=== PATIENT | male | born 1980 | race Caucasian/White ===

== ENCOUNTER 2021-08-06 12:58 | Emergency (ER) | payer MEDICAID ==
[~2021-08-06] VITALS: Ht 172.7 cm; Wt 122.3 kg
[~2021-08-06 12:58] MED LIST: INSLIS SUBCUT; INSU100I28 SQ; PROT40 MT
[2021-08-06 13:13] VITALS: BP 172/103
[2021-08-06] MEDS ORDERED: SULF1TAB44 MT (14:01)
[2021-08-06] MEDS ORDERED: CEPH500C2 MT (14:01)
== END 2021-08-06 16:14 | disposition home or self-care (01) ==
LOC: ER 12:58
DX: L02.31 Cutaneous abscess of buttock (principal); E11.9 Type 2 diabetes mellitus without complications; I10 Essential (primary) hypertension; Z79.4 Long term (current) use of insulin
CPT/HCPCS: 99282; 99283

== ENCOUNTER 2021-10-07 05:51 | Emergency (ER) | payer MEDICAID, OTHER ==
[~2021-10-07] VITALS: Ht 175.3 cm; Wt 118.0 kg
[~2021-10-07 05:51] MED LIST changes: +CEPH500C2 MT; +SULF1TAB44 MT
[2021-10-07] MEDS ORDERED: ONDANSETRON HCL 4MG/2ML INJ IV STA (06:21)
[2021-10-07] MEDS ORDERED: MORPHINE SULFATE 4 MG/ML CPJ (NOT FOR IM USE) IV STA (06:21)
[2021-10-07] MEDS ORDERED: SODIUM CHLORIDE 0.9% 1,000 ML IV ONE (06:30)
[2021-10-07 07:08] LABS: BASOPHILS % 0.2 % (0.0-2.0); EOSINOPHILS % 0.3 % (0.0-5.0); HEMOGLOBIN. 16.8 g/dL (14.0-18.0); LYMPHOCYTES % 9.3 % (20.0-50.0); MEAN CORPUSCULAR HEMOGLOBIN 30.6 pg (28.0-32.0); MEAN CORPUSCULAR VOLUME 90.8 fL (80.0-94.0); MEAN PLATELET VOLUME 8.6 fl (7.4-10.4); MONOCYTES % 6.3 % (2.0-8.0); NEUTROPHILS % 83.9 % (40.0-76.0); PLATELET 209 x1000/uL (130-400); RED CELL DISTRIBUTION WIDTH 12.8 % (11.6-14.6)
[2021-10-07 07:09] LABS: CHLORIDE 102 mEq/L (98-107)
[2021-10-07] MEDS ORDERED: VANCOMYCIN 1 G PREMIX 200 ML IV SCH (09:30)
[2021-10-07] MEDS ORDERED: CEFTRIAXONE 1 G PREMIX 50 ML IV ONE (09:30)
[2021-10-07 12:31] VITALS: BP 142/78
== END 2021-10-07 12:35 | disposition short-term general hospital (02) ==
LOC: ER 06:10 → CANBEDREQ 16:43
DX: L03.315 Cellulitis of perineum (principal); I10 Essential (primary) hypertension; E11.9 Type 2 diabetes mellitus without complications
CPT/HCPCS: 36415; 74177; 80053; 82962; 83605; 83880; 84484; 85025; 87040; 93005; 96361; 96365; 96366; 96368; 96375; 99285; J0696; J2270; J2405; J3370; J7030; Z7610; 96367

== ENCOUNTER 2023-03-19 05:37 | Emergency (ER) | payer MEDICAID, OTHER ==
[~2023-03-19] VITALS: Ht 30.5 cm; Wt 0.5 kg
[2023-03-19] MEDS ORDERED: KETOROLAC 30MG/ML VIAL IV STA (07:12)
[2023-03-19] MEDS ORDERED: SODIUM CHLORIDE 0.9% 1,000 ML IV ONE (07:15)
[2023-03-19 07:41] LABS: HEMATOCRIT. 46.1 % (42.0-52.0); HEMOGLOBIN. 16.1 g/dL (14.0-18.0); MEAN CORPUSCULAR HEMOGLOBIN 31.4 pg (28.0-32.0); MEAN CORPUSCULAR VOLUME 89.9 fL (80.0-94.0); MEAN PLATELET VOLUME 8.3 fl (7.4-10.4); PLATELET 250 x1000/uL (130-400); RED BLOOD CELL COUNT 5.12 mill/uL (4.7-6.1); RED CELL DISTRIBUTION WIDTH 12.8 % (11.6-14.6)
[2023-03-19 07:50] LABS: CHLORIDE 106 mEq/L (98-107)
[2023-03-19] MEDS ORDERED: LIDOCAINE HCL 1% 20ML VIAL (Pyxis) INJ INFIL ONE (08:45)
[2023-03-19] MEDS ORDERED: LIDOCAINE HCL/EPINEPHRINE 1%-EPI 1:100,000 50 ML VIAL INFIL ONE (08:45)
[2023-03-19] MEDS ORDERED: KETOROLAC 60MG/2ML VIAL IM ONE (09:00)
[2023-03-19] MEDS ORDERED: LIDOCAINE HCL/EPINEPHRINE 1%-EPI 1:100,000 30 ML VIAL INFIL NR (09:15)
[2023-03-19] MEDS ORDERED: DOXY100C5 MT (11:01)
[2023-03-19 11:23] VITALS: BP 158/98
[2023-03-19 12:10] LABS: PLATELET ESTIMATE NORMAL
== END 2023-03-19 11:35 | disposition home or self-care (01) ==
LOC: ER 05:37
DX: L02.31 Cutaneous abscess of buttock (principal); I10 Essential (primary) hypertension; E11.9 Type 2 diabetes mellitus without complications
CPT/HCPCS: 10060; 36415; 74176; 80053; 83605; 85025; 96361; 96374; 99285; J1885; J3490; J7030; Z7610

== ENCOUNTER 2023-03-26 16:31 | Emergency (ER) | payer MEDICAID ==
[~2023-03-26] VITALS: Ht 175.3 cm; Wt 118.0 kg
[~2023-03-26 16:31] MED LIST changes: +DOXY100C5 MT
[2023-03-26] MEDS ORDERED: KETOROLAC 30MG/ML VIAL IM ONE (17:15)
[2023-03-26] MEDS ORDERED: IBUP-2029 MT (18:28)
[2023-03-26 18:42] VITALS: BP 150/95
== END 2023-03-26 18:47 | disposition home or self-care (01) ==
LOC: ER 16:31
DX: M54.50 Low back pain, unspecified (principal); V49.69XA Unspecified car occupant injured in collision with other motor vehicles in traffic accident, initial encounter; Y93.89 Activity, other specified; Y92.89 Other specified places as the place of occurrence of the external cause; Y99.8 Other external cause status; E11.9 Type 2 diabetes mellitus without complications; I10 Essential (primary) hypertension
CPT/HCPCS: 72100; 96372; 99283; J1885; Z7610

== ENCOUNTER 2023-06-12 13:11 | Emergency (ER) | payer MEDICAID ==
[~2023-06-12] VITALS: Ht 172.7 cm; Wt 98.0 kg
[~2023-06-12 13:11] MED LIST changes: +IBUP-2029 MT
[2023-06-12 13:34] VITALS: BP 188/120; PULSE 111; RESP 16; TEMP 98.4; O2SAT 98
[2023-06-12] MEDS ORDERED: LIDOCAINE HCL/PF 1% 10 MG/ML 5ML VIAL INFIL ONE (14:15)
[2023-06-12] MEDS ORDERED: BACITRACIN ZINC OINT UDPKT TOP ONE (14:15)
[2023-06-12] MEDS ORDERED: SULF1TAB48 MT (15:47)
[2023-06-12] MEDS ORDERED: CEPH500T MT (15:47)
== END 2023-06-12 17:09 | disposition home or self-care (01) ==
LOC: ER 13:11
DX: L02.31 Cutaneous abscess of buttock (principal); E11.9 Type 2 diabetes mellitus without complications; I10 Essential (primary) hypertension; Z79.899 Other long term (current) drug therapy
CPT/HCPCS: 10060; 99283; J3490; Z7610 ×3

== ENCOUNTER 2024-10-25 14:53 | Emergency (ER) | payer MEDICAID ==
[~2024-10-25] VITALS: Ht 175.3 cm; Wt 114.0 kg
[~2024-10-25 14:53] MED LIST changes: +CEPH500T MT; +SULF1TAB48 MT
[2024-10-25 15:30] VITALS: TEMP 98.3; O2SAT 98
[2024-10-25 17:43] LABS: CHLORIDE 103 mEq/L (98-107); POTASSIUM 3.8 mEq/L (3.5-5.1); SODIUM 140 mEq/L (136-145)
[2024-10-25 17:44] LABS: CARBON DIOXIDE 29 mEq/L (21-32)
[2024-10-25 17:45] LABS: CALCIUM 10.3 mg/dL (8.7-10.4)
[2024-10-25 17:49] LABS: CREATININE 0.9 mg/dL (0.6-1.3)
[2024-10-25 17:50] LABS: GLUCOSE 104 mg/dL (70-105); UREA NITROGEN BLOOD 15 mg/dL (9-23)
[2024-10-25 17:51] LABS: ALANINE AMINOTRANSFERASE 34 IU/L (10-49); ALBUMIN 4.8 g/dL (3.2-4.8); ASPARTATE AMINOTRANSFERASE 26 IU/L (<34)
[2024-10-25 17:52] LABS: BILIRUBIN DIRECT 0.3 mg/dL (<=3.0); BILIRUBIN TOTAL 0.9 mg/dL (0.1-1.0); PROTEIN TOTAL 8.3 g/dL (6.0-8.3)
[2024-10-25 18:12] LABS: BASOPHILS % 0.6 % (0.0-2.0); EOSINOPHILS % 0.8 % (0.0-5.0); HEMATOCRIT. 43.5 % (42.0-52.0); HEMOGLOBIN. 14.7 g/dL (14.0-18.0); MEAN CORPUSCULAR HEMOGLOBIN 31.3 pg (28.0-32.0); MEAN CORPUSCULAR HGB CONC 33.7 g/dL (31.0-37.0); MEAN CORPUSCULAR VOLUME 92.7 fL (80.0-94.0); MEAN PLATELET VOLUME 8.7 fl (7.4-10.4); MONOCYTES % 6.9 % (2.0-8.0); NEUTROPHILS % 71.7 % (40.0-76.0); PLATELET 264 x1000/uL (130-400); RED BLOOD CELL COUNT 4.69 mill/uL (4.7-6.1); RED CELL DISTRIBUTION WIDTH 13.2 % (11.6-14.6); WHITE BLOOD COUNT 12.1 x1000/uL (4.5-11.0)
[2024-10-25] MEDS ORDERED: FAMOTIDINE 20MG TABLET PO ONE (18:45)
[2024-10-25] MEDS ORDERED: MAGNESIUM/ALUMINUM HYDROXIDE/SIMETHICONE 30ML UDC PO ONE (18:45)
[2024-10-25] MEDS ORDERED: MAG355OR21 MT (21:44)
[2024-10-25] MEDS ORDERED: LOPE2CAP MT (21:44)
[2024-10-25 21:53] VITALS: BP 146/65; PULSE 65; RESP 18; O2SAT 100
== END 2024-10-25 22:19 | disposition home or self-care (01) ==
LOC: ER 14:53
DX: R10.13 Epigastric pain (principal); R19.7 Diarrhea, unspecified; E11.9 Type 2 diabetes mellitus without complications; I10 Essential (primary) hypertension; K80.20 Calculus of gallbladder without cholecystitis without obstruction; R16.0 Hepatomegaly, not elsewhere classified; Z79.899 Other long term (current) drug therapy
CPT/HCPCS: 36415; 74176; 80048; 80076; 85025; 93005; 99291